=== PATIENT | female | born 1960 | race Caucasian/White ===

== ENCOUNTER 2023-10-11 14:13 | Emergency (ER) | payer BC, SELFPAY ==
[2023-10-11] VITALS (14 sets, daily range): BP systolic 126–188; BP diastolic 77–95; PULSE 64–96; RESP 16–27; TEMP 36.9; O2SAT 94–100; BMI 27.3
--- NOTE | 2023-10-11 14:25 | DI.RAD.S_ITS ---
PROCEDURE: XR CHEST 1V INDICATIONS: chest pain TECHNIQUE: One view of the chest was acquired. COMPARISON: [facility], CR, XR CHEST 1 VIEW, 04/13/2021, 12:56. FINDINGS: Surgical changes and devices: None. Lungs and pleura: Lungs are clear. No pleural effusions or pneumothorax. Mediastinum: Mediastinal contours appear normal. Heart size is normal. Bones and chest wall: No suspicious bony lesions. Overlying soft tissues appear unremarkable. IMPRESSION: No acute cardiopulmonary abnormality is seen. Dictated by: Venus Ulloa MD, PhD on 10/11/2023 at 15:11 Approved by: Venus Ulloa MD, PhD on 10/11/2023 at 15:13
[2023-10-11 14:56] LABS: Add Manual Diff / Slide Review NO; Basophils Absolute Auto 0 /uL (0-100); Basophils Percent Auto 0.5 % (0-2); Eosinophils Absolute Auto 100 /uL (0-450); Eosinophils Percent Auto 2.2 % (2-4); Hematocrit 41.3 % (36-46); Hemoglobin 14.3 g/dL (12.0-16.0); Lymphocytes Absolute Auto 1500 /uL (1100-4500); Mean Corpuscular HGB Conc 34.7 % (30-36); Mean Corpuscular Volume 83.5 fL (80-100); Monocytes Absolute Auto 300 /uL (0-900); Monocytes Percent Auto 5.2 % (3-14); Neutrophils Absolute Auto 4400 /uL (1500-7000); Neutrophils Percent Auto 68.1 % (50-75); Platelet Count 328 X10^3/uL (150-400); Red Blood Cell Count 4.95 X10^6/uL (4.0-5.2); Red Cell Distribution Width 13.1 % (11.6-14.8); White Blood Cell Count 6.4 X10^3/uL (4.5-11.0)
[2023-10-11 15:05] LABS: Prothrombin Time 11.3 SECONDS (9.4-12.5)
[2023-10-11 15:07] LABS: PTT Partial Thromboplastin Tim 36 SECONDS (25.1-36.5)
[2023-10-11 15:09] LABS: Alanine Aminotransferase 27 IU/L (<35); Albumin 4.6 g/dL (3.5-5.0); Albumin Globulin Ratio 1.5 (1.0-2.8); Alkaline Phosphatase 67 U/L (38-126); Aspartate Aminotransferase 25 IU/L (14-36); Bilirubin Total 0.6 mg/dL (0.2-1.3); Blood Urea Nitrogen 12 mg/dL (7-17); Calcium 9.9 mg/dL (8.4-10.2); Carbon Dioxide 31 mmol/L (22-32); Chloride 100 mmol/L (98-107); Creatine Kinase 90 U/L (30-135); Estimated Glomerular Filt Rate > 60 mL/min (>60); Globulin 3.1 g/dL (1.7-4.1); Glucose 113 mg/dL (80-110); HEMOLYSIS < 15 (0-50); Lipase 156 U/L (23-300); Magnesium 2.1 mg/dL (1.6-2.3); Potassium 3.2 mmol/L (3.4-5.1); Sodium 138 mmol/L (137-145); Total Protein 7.7 g/dL (6.3-8.2)
[2023-10-11 15:21] LABS: Troponin I < 0.012 ng/mL (0.01-0.034)
--- NOTE | 2023-10-11 17:44 | PC.NURSE ---
patient was recently seen for hypertension and headache and was screened for dangerous conditions and was sent home and supposed to see her PCP. She was scheduled an appointment to follow up about her blood pressure but her appointment is not for another week. She came to the ER to get help with her headache and blurry vision. Provider notified. No orders at this time.
--- NOTE | 2023-10-11 18:15 | ED_ITS ---
HPI - Dizziness General Chief Complaint: Dizziness Stated Complaint: dizzy, nausea, tingling L arm Time Seen by Provider: 10/11/23 17:56 Source: patient Mode of arrival: Ambulatory History of Present Illness HPI Narrative: 63-year-old female presents by private vehicle for dizziness that she describes as lightheadedness, nausea, general malaise feeling. Also reports intermittent tingling in her left arm from her elbow down to her fingertips. Patient states that she was felt this way for over 1 month. She initially went to a hospital in [place] where she said ?everything was done?, but no diagnosis was made and she was told that everything was normal. Patient states she is continued to feel overall poorly in his presenting for additional evaluation. She states that she has a primary care doctor's appointment in 5 days, but due to her symptoms she wanted to be seen in the emergency department earlier. Related Data Previous Rx's Medication Instructions Recorded amlodipine 5 mg tablet 5 mg PO DAILY #14 tabs 10/11/23 ondansetron 4 mg disintegrating 4 mg PO Q8H PRN nausea and 10/11/23 tablet vomiting #30 tabs Allergies Allergy/AdvReac Type Severity Reaction Status Date / Time amoxicillin Allergy Rash Verified 10/11/23 14:19 Penicillins Allergy Rash Verified 10/11/23 14:19 Review of Systems Review of Systems Narrative: Negative except as noted above Patient History Social History Smoking Status: Never smoker Smoking Status: Never smoker Substance Use Type: does not use Exam Initial Vital Signs Initial Vital Signs: Vital Signs Temperature 98.4 F 10/11/23 14:19 Pulse Rate 87 10/11/23 14:19 Respiratory Rate 16 10/11/23 14:19 Blood Pressure 186/95 H 10/11/23 14:19 Pulse Oximetry 98 10/11/23 14:19 Oxygen Delivery Method Room Air 10/11/23 14:19 Const: Awake, alert, no acute distress, nontoxic appearing Cardiac: regular rate, regular rhythm RESP: unlabored, clear bilaterally, no wheezing GI: Atraumatic, soft, nontender, nondistended, no rebound, no guarding MSK: Atraumatic, full range of motion, pulses equal Skin: Warm, Dry, intact, no rashes Neuro: AO x3, CN II-XII grossly intact, moves all extremities Course Orders Ordered: Discontinued Medications Aspirin (Aspirin 81 Mg Chew Tab) 324 mg PO NOW ONE Stop: 10/11/23 14:26 Last Admin: 10/11/23 18:25 Dose: Not Given Documented By: RB Sodium Chloride (Normal Saline 0.9%) 1,000 mls @ 1,000 mls/hr IV BOLUS ONE Stop: 10/11/23 20:55 Last Infusion: 10/11/23 21:07 Dose: Infused Documented By: Admin: 10/11/23 20:24 Dose: 1,000 mls/hr Documented By: AB Ondansetron HCl (Ondansetron 4 Mg/2 Ml Inj) 4 mg IV NOW ONE Stop: 10/11/23 19:57 Last Admin: 10/11/23 20:29 Dose: Not Given Documented By: AB Vital Signs Vital signs: Vital Signs - 8 hr 10/11/23 14:19 10/11/23 16:56 10/11/23 16:58 Temperature 98.4 F Pulse Rate 87 67 72 Respiratory Rate 16 21 18 Blood Pressure 186/95 H Pulse Oximetry 98 100 Oxygen Delivery Method Room Air 10/11/23 16:58 10/11/23 17:00 10/11/23 17:00 Temperature Pulse Rate 72 Respiratory Rate 16 Blood Pressure 126/92 H 166/89 H Pulse Oximetry 99 Oxygen Delivery Method 10/11/23 17:30 10/11/23 17:30 10/11/23 18:00 Temperature Pulse Rate 71 Respiratory Rate 20 Blood Pressure 182/85 H 181/89 H Pulse Oximetry 98 Oxygen Delivery Method 10/11/23 18:00 10/11/23 18:32 10/11/23 18:33 Temperature Pulse Rate 76 77 Respiratory Rate 21 Blood Pressure 188/88 H Pulse Oximetry 98 97 Oxygen Delivery Method 10/11/23 18:33 10/11/23 19:00 10/11/23 19:00 Temperature Pulse Rate 78 87 Respiratory Rate 18 27 H Blood Pressure 177/87 H Pulse Oximetry 99 98 Oxygen Delivery Method MDM - Dizziness Differential Diagnosis Differential diagnosis: Likely adverse reaction to drug, benign paroxysmal positional vertigo and orthostatic hypotension Lab Data 10/11/23 14:37 10/11/23 14:37 Labs: Lab Results 10/11/23 10/11/23 Range/Units 14:37 20:00 WBC 6.4 (4.5-11.0) X10^3/uL RBC 4.95 (4.0-5.2) X10^6/uL Hgb 14.3 (12.0-16.0) g/dL Hct 41.3 (36-46) % MCV 83.5 (80-100) fL MCH 29.0 (26-34) PG MCHC 34.7 (30-36) % RDW 13.1 (11.6-14.8) % Plt Count 328 (150-400) X10^3/uL Neut % (Auto) 68.1 (50-75) % Lymph % (Auto) 24.0 L (25-40) % [place] % (Auto) 5.2 (3-14) % Eos % (Auto) 2.2 (2-4) % Baso % (Auto) 0.5 (0-2) % Neut # (Auto) 4400 (4773-5166) /uL Lymph # (Auto) 1500 (2339-6436) /uL [place] # (Auto) 300 (0-900) /uL Eos # (Auto) 100 (0-450) /uL Baso # (Auto) 0 (0-100) /uL PT 11.3 (9.4-12.5) SECONDS INR 1.0 (0.9-1.3) APTT 36 (25.1-36.5) SECONDS Sodium 138 (137-145) mmol/L Potassium 3.2 L (3.4-5.1) mmol/L Chloride 100 (98-107) mmol/L Carbon Dioxide 31 (22-32) mmol/L BUN 12 (7-17) mg/dL Creatinine 0.60 (0.52-1.04) mg/dL Estimated GFR > 60 (>60) mL/min BUN/Creatinine Ratio 20.0 (6-22) Glucose 113 H (80-110) mg/dL Calcium 9.9 (8.4-10.2) mg/dL Magnesium 2.1 (1.6-2.3) mg/dL Total Bilirubin 0.6 (0.2-1.3) mg/dL AST 25 (14-36) IU/L ALT 27 (<35) IU/L Alkaline Phosphatase 67 (38-126) U/L Total Creatine Kinase 90 (30-135) U/L Troponin I < 0.012 (0.01-0.034) ng/mL Total Protein 7.7 (6.3-8.2) g/dL Albumin 4.6 (3.5-5.0) g/dL Globulin 3.1 (1.7-4.1) g/dL Albumin/Globulin Ratio 1.5 (1.0-2.8) Lipase 156 (23-300) U/L Urine Color Yellow Urine Appearance Clear Urine pH 7.0 (4.5-8.0) Ur Specific [place] 1.010 (1.000-1.035) Urine Protein Negative (Negative) Urine Glucose (UA) Negative (Negative) g/dL Urine Ketones Negative (NEGATIVE) Urine Occult Blood Trace-intact (Negative) Urine Nitrate Negative (Negative) Urine Bilirubin Negative (NEGATIVE) Urine Urobilinogen 0.2 (0.2) E.U./dL Ur Leukocyte Esterase Negative (NEGATIVE) Urine RBC 0-1/hpf (0-5/HPF) Urine WBC None seen (0-5/HPF) Ur Squamous Epith Cells None seen (0-5/HPF) Urine Bacteria None seen (None) Ur Culture Indicated? Cult not indicated Vol Urine Centrifuged 10ml (spun) Imaging Data Chest x-ray: Radiologist's Impression: PROCEDURE: XR CHEST 1V INDICATIONS: chest pain TECHNIQUE: One view of the chest was acquired. COMPARISON: [facility], , XR CHEST 1 VIEW, 04/13/2021, 12:56. FINDINGS: Surgical changes and devices: None. Lungs and pleura: Lungs are clear. No pleural effusions or pneumothorax. Mediastinum: Mediastinal contours appear normal. Heart size is normal. Bones and chest wall: No suspicious bony lesions. Overlying soft tissues appear unremarkable. IMPRESSION: No acute cardiopulmonary abnormality is seen. Dictated by: Venus Ulloa MD, PhD on 10/11/2023 at 15:11 Approved by: Venus Ulloa MD, PhD on 10/11/2023 at 15:13 ECG Data Interpretation: Normal sinus rhythm at 77 beats per minute T-wave inversions lateral leads, no priors for comparison. MDM Narrative Medical decision making narrative: Up to 1 month various symptoms. Negative workup at outside hospital for identical symptoms reported to be unremarkable. Patient does have some T-wave inversions in the lateral leads, she was denying any chest pain, and there are no priors for comparison. Patient is somewhat hypertensive on arrival, she states that she takes her hydrochlorothiazide, but does not know the dose. Laboratory work is reviewed, patient has mild hypokalemia. Troponin undetectable, other electrolytes within normal limits. Patient eating crackers in ED bed, no acute distress. Patient and at bedside advised of all lab and imaging findings. Will send nausea medications to pharmacy of choice as well as a short course of amlodipine for additional blood pressure control. Patient has follow up with her primary care physician in 5 days and we will follow up with them concerning her symptoms as well as possible medication changes. ED return precautions discussed at bedside. Patient expressed understanding of the plan and is in agreement at this time. All questions answered at the time of discharge. Discharge Plan Departure Patient Disposition: Home Clinical Impression: Nausea, Hypertension Instructions: High Blood Pressure, DI for Nausea -- Adult Prescriptions: New amlodipine 5 mg tablet 5 mg PO DAILY Qty: 14 0RF ondansetron 4 mg tablet,disintegrating 4 mg PO Q8H PRN (Reason: nausea and vomiting) Qty: 30 0RF Stand Alone Forms: Patient Portal/API
[2023-10-11 20:15] LABS: Appearance Urine UA CLEAR; Bilirubin Urine UA NEGATIVE (NEGATIVE); Color Urine UA YELLOW; Glucose Urine UA NEGATIVE (Negative); Ketones Urine UA NEGATIVE (NEGATIVE); Leukocyte Esterase Urine UA NEGATIVE (NEGATIVE); Nitrite Urine UA NEGATIVE (Negative); Occult Blood Urine UA TRACE-INTACT (Negative); Protein Urine UA NEGATIVE (Negative); Urobilinogen Urine UA 0.2 E.U./dL (0.2)
[2023-10-11] MEDS: SODIUM CHLORIDE 0.9% 1,000 ML 1000 ML IV (20:24)
[2023-10-11 20:35] LABS: Bacteria Urine None Seen; Culture Indicated Urine Cult Not Indicated; RBC Urine 0-1/HPF (0-5/HPF); Squamous Epithelial Cell Urine None Seen (0-5/HPF); Urine Volume 10mL (spun); WBC Urine None Seen (0-5/HPF)
== END 2023-10-11 21:09 | disposition home or self-care (01) ==
PROVIDERS: Emergency Medicine; Emergency Provider Emergency Medicine
DX: I10 Essential (primary) hypertension (principal); E87.6 Hypokalemia; R07.9 Chest pain, unspecified; R11.0 Nausea
CPT/HCPCS: 36415; 71045; 80053; 81001; 82550; 83690; 83735; 84484; 85025; 85610; 85730; 93005; 93010; 96360; 99284